=== PATIENT | female | born 1965 | race Caucasian/White ===

== ENCOUNTER 2017-09-15 06:09 | Day surgery (SDC) | payer OTHER ==
[~2017-09-15] VITALS: Ht 167.6 cm; Wt 71.4 kg
[~2017-09-15 06:09] MED LIST: HYDR-3533 PO; LOVA20TA PO; NORV2.5T11 PO; PRIS50TA PO; TRIA37.512 PO
[2017-09-15] MEDS ORDERED: IOHEXOL 350 MG/ML 50 ML BTL (for Cath Lab) OTHER ONE (06:10)
[2017-09-15] MEDS ORDERED: NS 1000P @30 MLS/HR (KVO) IV SCH (06:30)
[2017-09-15] MEDS ORDERED: ESCI10TA PO (07:07)
[2017-09-15] MEDS ORDERED: AMLO2.5T PO (07:07)
[2017-09-15] MEDS ORDERED: FLUT1AER4 INH (07:07)
[2017-09-15] MEDS ORDERED: PRED1 PO (07:07)
[2017-09-15] MEDS ORDERED: ATOR40TA16 PO (07:07)
[2017-09-15] MEDS ORDERED: PANT40TA3 PO (07:07)
[2017-09-15 07:09] VITALS: BP 146/99; PULSE 70; RESP 19; TEMP 98.1; O2SAT 97
[2017-09-15] MEDS ORDERED: NITROGLYCERIN INJ 5 ML ONE (08:26)
[2017-09-15] MEDS ORDERED: HEPARIN-NS/PF INJ 1,000 ML ONE (08:27)
[2017-09-15] MEDS ORDERED: HEPARIN SODIUM - IV 10,000 UNITS/10 ML VIAL ONE (08:27)
[2017-09-15] MEDS ORDERED: MIDAZOLAM HCL 2 MG/2 ML VIAL ONE ×2 (08:27→08:42)
[2017-09-15] MEDS ORDERED: ASPI81TA23 PO (08:58)
[2017-09-15] MEDS ORDERED: MISC INFORMATION XX ONE (09:00)
[2017-09-15] MEDS ORDERED: BACITRACIN OINT 0.9 GM PKT TOP ONE (09:00)
--- NOTE | 2017-09-15 09:02 | CATHPROC ---
inDegree HIS Report Study Information Study Number Admission Scheduled Start Study Start [id number] Sep 15 2017 6:09AM 09/15/2017 Sep 15 2017 8:03AM [place] [facility]iac Catheterization Admit Source Facility Department Other [facility] - Director Clinical Data Physician and Clinical Staff Initial MD Sanchez, Robert Engine Inspectorbrian Nam RN, Ramo RecordPadmini Palacio,RT(R) (BS) Scrub Chuyita Nevarez,RT(R) Procedures Performed Procedure Location (Site) Vessel Name Coronary Angiograms LCA Left Coronary Coronary Angiograms RCA Right Coronary L Heart Cath Wire insertion Radial (right) Radial Art. Equipment Time Electrifier Operator Description Size Mfg Part Number Used/Scraped TRANSDUCER, TRUWAVE [id number] 08:05 BANUELOS PEDROZA * Used W/STOCKCOCK *[id number] *[id number] 08:05 [employer] PACK, CCL CUSTOM * Used *[id number] 08:05 [employer] SUPPORT, ARTERIAL ADULT 16070 *[id number] Used [id number] 08:05 [employer] PACER PEN, SKIN DUAL W/ RULER * Used *[id number] 08:46 [employer] JR 5.0 DXTERITY CATHETER fr 5 [id number] Used BAND, RADIAL COMPRESSION TR [id number] 08:51 [employer] 24CM Used SHORT 24 *[id number] SHEATH, FR6 RADIAL PRELUDE 08:05 [employer] FR 6 [id number] Used EASE 11CM [id number] 08:05 [employer] WIRE, EXCHANGE 260CM 3MMJ 260CM Used *[id number] 08:05 [employer] OMNIPAQUE, 350 MG, 150ML 150ML [id number] Used [id number] 08:05 [employer] BLANKET,WARM AIR CCL * Used *[id number] Equipment Model, Serial, Lot Number and Expiration Data Description Model Number Serial Number Lot Number Expiration Date JR 5.0 DXTERITY CATHETER [id number] 11-26-2019 History: Current Medications Medication Dosage/Unit Route Frequency Last Date/Time Taken Statins (any) History: Allergies Allergy Reaction nitrofurantoin NAUSEA AND VOMITTING penicillin G Rash History: Risk Factors Family History of Hypertension Dyslipidemia Previous ND Previous Heart Failure Premature CAD Yes Yes Yes No No Prior Valve Prior PCI Prior CABG Surgery No No No Cerebrovascular Peripheral Artery Chronic Lung On Dialysis Diabetes Disease Disease Disease No No No No No History: Stress Tests Stress or Imaging Studies Performed Yes Standard Exercise Stress Test No Stress Echo No Stress Test SPECT Stress Test SPECT Result Yes Positive Stress Test CMR No Cardiac CTA Coronary Calcium Score No No History: Other Current Smoker No Labs Hgb (g/dl) Hct (%) WBC (l/cumm) Platelets (thousands) 11.60-17.00 35.00-51.00 4.00-11.00 150.00-450.00 14.6 43.3 4.8 329 Glucose (mg/dl) BUN (mg/dl) Creatinine (mg/dl) BUN:Creatinine (1:x) 74.00-106.00 7.00-18.00 0.50-1.30 10.00-20.00 85 11 0.7 15.7 Na (meq/l) K (meq/l) 136.00-145.00 3.50-5.10 140 4.4 CPK-MB (ng/ML) 0.50-3.60 Not Drawn Medication Medication Total Dose (Bolus/Oral) Medication Total Dosage/Unit 1% XYLOCAINE 1 mL FENTANYL 75 mcg HEPARIN 3000 units RADIAL COCKTAIL 1 units VERSED 3 mg Medications (Bolus/Oral) Medication Time Given Dosage/Unit Administered By Reason VERSED 09/15/2017 8:36:24 AM 2 mg Robert Sanchez 2 mg VERSED given in lab by Robert Sanchez in Left Antecubital via Peripheral IV. FENTANYL 09/15/2017 8:37:46 AM 50 mcg Robert Sanchez 50 mcg FENTANYL given in lab by Robert Sanchez via Peripheral IV. VERSED 09/15/2017 8:40:10 AM 1 mg Robert Sanchez 1 mg VERSED given in lab by Robert Sanchez in Left Antecubital via Peripheral IV. FENTANYL 09/15/2017 8:41:29 AM 25 mcg Ramo Nam RN 25 mcg FENTANYL given in lab by Ramo Nam RN in Left Antecubital via Peripheral IV. 1% XYLOCAINE 09/15/2017 8:42:32 AM 1 mL Robert Sanchez 1 mL 1% XYLOCAINE given in lab by Robert Sanchez in Right Radial via Subcutaneous. HEPARIN 09/15/2017 8:43:52 AM 3000 units Ramo Nma RN 3000 units HEPARIN given in lab by Ramo Nam RN in Left Antecubital via Peripheral IV. Ntg 200mcg Verapamil 2.5mg Heparin RADIAL COCKTAIL 09/15/2017 8:44:42 AM 1 units Robert Sanchez 1999U 1 units RADIAL COCKTAIL given in lab by Robert Sanchez via Radial. Reason: Ntg 200mcg Medication (Drip) Medication Time Given Dosage/Unit Concentration/Unit Diluent (ml) Solution IV Solutions 09/15/2017 8:15:10 AM 0 mL (IV) 500 NaCl .9 IV Solutions given in lab by Ramo Nam RN in Left Antecubital via Peripheral IV. Pump/Drip Flow = 30 ml/hr using NaCl .9. Initial Case Assessment Cardiovascular HR Rhythm NIBP Chest Pain 70 reg 164/96 0 Edema Present Skin color Skin None Normal Warm Dry Circulatory - Right Pulses Dorsalis Pedis Femoral Radial 2 2 2 Scale (0,1,2,3,4,d) Circulatory - Left Pulses Dorsalis Pedis Femoral Radial 2 2 Scale (0,1,2,3,4,d) Circulatory - Lower Extremities Color Lower Right Color Lower Left Normal Normal Neurological State Oriented to time-place- Alert Moves all extremities person Respiration - General Respiration Rate SpO2 (%) (B/min) 20 100 Chronological Log Time Study Chronological Log 8:14:39 Patient arrived via Bed. 8:14:40 Patient Name, D.O.B, / Armband Verified By R.N. 8:14:43 Consent signed by the physician and the patient and verified by the Director Clinical Data staff. 8:14:44 Pre-op and post- op instructions given; patient acknowledges understanding of instructions. 8:14:44 Verbal Stimulation=2 Physical Stimulation=2 Airway=2 Respiration=2 TOTAL=8. (0=absent, 1=li mited, 2=present) 8:14:45 Presedation assessment performed by Director Clinical Data RN. 8:14:47 Allens test performed on the right radial and ulnar artery. 8:14:52 Patient has been NPO for More than 6Hrs. 8:14:56 Skin Breakdown none per pt 8:14:56 Patient Warmer Placed on the Table. 8:14:58 Marylu Prominences Protected 8:15:09 A # 20 IV was noted in the Antecubital (left). Grade = 0 IV Solutions given in lab by Ramo Nam RN in Left Antecubital via Peripheral IV. Pump/Drip F low = 30 ml/hr using NaCl 8:15:10 .9. 8:15:11 History and physical on the chart or being dictated. Assessment: Initial Case, HR=70 BPM, Rhythm=reg, DDAZ=408/96 mmhg, Chest Pain=0, Edema=None, Col or=Normal, Skin = Warm, Dry Right Pulses: Yair Ped=2, Femoral=2, Radial=2 Left Pulses: Yair Ped=2, Femoral=2 8:15:11 Lower Right Extremities: Color=Normal Lower Left Extremities: Color=Normal Neurological: State=Alert, Ox3, DE ANDA Respiration: Resp=20 B/min, WiJ2=365 % Vitals capture started with the following parameters, Patient=Adult, Interval=5 min, Initial Pre qgasx=996 mmHg, 8:20:23 Deflation Rate=5 mmHg, Cuff placed on Right Arm 8:21:32 RKHG=864/96 mmhg, SpO2=99.0 %, Pain=0, Sheela=10, Encarnacion=2 8:25:58 HR=62 bpm, TBVN=351/96 mmhg, SpO2=99.0 %, Resp=16 B/min, Pain=0, Sheela=10, Encarnacion=2 8:28:14 Reference ECG taken 8:31:01 HR=68 bpm, QPQC=132/103 mmhg, SpO2=98.0 %, Resp=22 B/min, Pain=0, Sheela=10, Encarnacion=2 8:31:17 Right Radial and right groin prepped with 2% chlorhexidine, and draped after a 3 min. waitin g time. 8:35:50 MD paged 8:36:02 HR=64 bpm, GMSA=015/85 mmhg, SpO2=98.0 %, Resp=20 B/min, Pain=0, Sheela=10, Encarnacion=2 8:36:05 MD arrived 8:36:24 2 mg VERSED given in lab by Robert Sanchez in Left Antecubital via Peripheral IV. 8:37:31 MD responded 8:37:46 50 mcg FENTANYL given in lab by Robert Sanchez via Peripheral IV. Time Out. Correct patient, correct procedure, correct physician, labs, allergies, and equipment verified with optical laboratory mechanic 8:39:06 team present. Fire risk assesment completed (see hard stop sheet for coding). Time Out Concu rred by MD and individual staff in procedure. 8:39:13 Case Start 8:40:10 1 mg VERSED given in lab by Robert Sanchez in Left Antecubital via Peripheral IV. 8:40:57 HR=70 bpm, QINB=056/96 mmhg, PgS6=785.0 %, Resp=16 B/min, Pain=0, Sheela=10, Encarnacion=2 8:41:29 25 mcg FENTANYL given in lab by Ramo Nam RN in Left Antecubital via Peripheral IV. 8:41:42 Pressure channel 1 zeroed. 8:42:32 1 mL 1% XYLOCAINE given in lab by Robert Sanchez in Right Radial via Subcutaneous. 8:43:52 3000 units HEPARIN given in lab by Ramo Nam RN in Left Antecubital via Peripheral IV. 8:44:05 Access site was right Radial Artery. A SHEATH, FR6 RADIAL PRELUDE EASE 11CM FR 6 was advanced into the Radial (right) using the Jose A ramires 8:44:14 technique. 8:44:28 In the Radial (right) the SHEATH, FR6 RADIAL PRELUDE EASE 11CM FR [address] by Robert Sanchez. 8:44:42 1 units RADIAL COCKTAIL given in lab by Robert Sanchez via Radial. Reason: Ntg 200mcg A JR 5.0 DXTERITY CATHETER fr 5 was advanced over a wire. OMNIPAQUE, 350 MG, 150ML 150ML was use d for 8:45:53 injections. 8:46:00 HR=75 bpm, FXIP=825/85 mmhg, SpO2=98.0 %, Resp=46 B/min, Pain=0, Sheela=10, Encarnacion=2 Recorded Pressure: LV, HR=87, Condition=Condition 1 8:46:44 (Left Ventricle) LV 130/-12/-1 Recorded Pressure: LV, Ao, HR=80, Condition=Condition 1 8:46:56 (Left Ventricle) LV 126/-11/0, (Aorta) Ao 119/81/98 8:47:23 The RCA was injected and visualized at various angles. OMNIPAQUE, 350 MG, 150ML 150ML used. After removing the current catheter a JL 3.5 INFINITI CATHETER FR 5 was advanced over a WIRE, EX CHANGE 260CM 8:47:35 3MMJ 260CM. 8:49:30 The LCA was injected and visualized at various angles. OMNIPAQUE, 350 MG, 150ML 150ML used. Recorded Pressure: Ao, HR=75, Condition=Condition 1 8:49:53 (Aorta) Ao 83/61/72 8:50:34 A WIRE, EXCHANGE 260CM 3MMJ 260CM was inserted via Radial (right). 8:50:40 Catheter was removed 8:50:41 Wire removed 8:50:44 Case End 8:50:55 Catheter(s) removed without difficulty 8:50:57 HR=81 bpm, IGNQ=989/79 mmhg, SpO2=95.0 %, Resp=15 B/min, Pain=0, Sheela=10, Encarnacion=2 8:52:12 No case complications noted. 8:52:18 Bedside Report will be given. 8:52:20 A Left Heart Cath was performed. Radial Compression Device Used. 12 mLs of air placed in BAND, RADIAL COMPRESSION TR SHORT 24 2 4CM. Affected 8:52:25 hand 95 % O2 saturation. 8:55:52 HR=65 bpm, MXYG=625/77 mmhg, SpO2=95.0 %, Resp=14 B/min, Pain=0, Sheela=10, Encarnacion=2 8:57:04 Vitals capture stopped. 9:04:43 Patient moved to [facility] [place] End Study - Contrast Media Used In Study Contrast Total Opened (mL) Total Used (mL) Total Wasted (mL) Omnipaque 30 30 0 End Study - Maximum Contrast Load Max Contrast Load (mL) 510.1 End Study - Radiation Exposure Fluoro Time (minutes) 0.9 End Study - Sheaths Sheaths Pulled By Sheath Hold Time (min) Chuyita Nevarez End Study - Patient Disposition Complications Transferred To Interventional Outcome No Director Clinical Data Holding No attempt made
--- NOTE | 2017-09-15 09:18 | MA ---
cc: Robert Sanchez MD DATE: 09/15/2017 DATE OF PROCEDURE:. 09/15/2017 INDICATION: Unstable angina/intermediate risk stress test. PROCEDURES PERFORMED: 1. Fluoroscopy with interpretation. 2. Left heart catheterization. 3. Coronary angiography. METHOD: Risks, benefits and alternatives discussed with the patient. The patient understood and consented to the procedure. The patient was brought into catheterization lab, placed on the catheterization table. The right wrist was prepped and draped in sterile fashion. The right wrist was anesthetized with 2% lidocaine. The right radial artery was cannulated and a 6-Zambian, 7-cm sheath was placed without difficulty. LEFT HEART CATHETERIZATION: Intraventricular hemodynamics shows 126/0 mmHg. CORONARY ANGIOGRAPHY: Left coronary circulation was selectively engaged with a 6-Zambian, JL3.5 catheter. Right coronary circulation was selectively engaged with a 6-[place]ian JR5 catheter. Angiography findings are as follows: 1. Left main coronary artery is angiographically normal, but very short. 2. Left anterior descending coronary has minimal luminal irregularities in the mid-segment. There are 2 smaller diagonal branches which are angiographically normal. Distal left anterior descending coronary artery is angiographically normal. 3. Left circumflex coronary artery gives rise to a first obtuse marginal branch of moderate caliber size, angiographically normal. 4. Right coronary artery is dominant. It does give rise to a posterior descending branch. Right coronary artery is angiographically normal. CONCLUSIONS: 1. Minimal luminal irregularities. 2. Normal left-sided filling pressure. PLAN: The patient will be monitored closely for any post-procedural complication. We will initiate aspirin. Stress test was a false positive. She can follow up with Dr. William. Robert Sanchez MD ADAN/SB , 09:00 AM , 09:17 AM
== END 2017-09-15 12:30 | disposition home or self-care (01) ==
LOC: HDIC 06:09 → HDOC 06:09
PROVIDERS: ATTEND Internal Medicine
DX: R94.39 Abnormal result of other cardiovascular function study (principal); R00.2 Palpitations; R55 Syncope and collapse; I10 Essential (primary) hypertension; E78.00 Pure hypercholesterolemia, unspecified; F41.9 Anxiety disorder, unspecified; R06.09 Other forms of dyspnea
CPT/HCPCS: 86850; 86900; 86901; 93458; 99152; 99153; C1769; C1893; J1644; J2250; J3010; Q9967